=== PATIENT | male | born 1995 | race African-American/Black ===

== ENCOUNTER 2020-05-08 00:17 | Emergency (ER) | payer MEDICAID ==
[~2020-05-08] VITALS: Ht 182.9 cm; Wt 65.8 kg
[2020-05-08 00:30] VITALS: BP 116/79
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
[2020-05-08] MEDS ORDERED: CYCLOBENZAPRINE 10 MG TABLET ONE (00:42)
[2020-05-08] MEDS ORDERED: IBUPROFEN 400 MG TABLET ONE (00:43)
[2020-05-08] MEDS ORDERED: CYCL5TAB PO (00:45)
[2020-05-08] MEDS ORDERED: IBUP-1957 PO (00:45)
[2020-05-08] MEDS: CYCLOBENZAPRINE 10 MG TABLET PO ONE (00:48)
[2020-05-08] MEDS: IBUPROFEN 400 MG TABLET PO ONE (00:48)
== END 2020-05-08 01:20 | disposition home or self-care (01) ==
LOC: ER 00:17
DX: M79.18 Myalgia, other site (principal); M54.5 Low back pain; Z79.899 Other long term (current) drug therapy; V49.59XA Passenger injured in collision with other motor vehicles in traffic accident, initial encounter; Y93.89 Activity, other specified; Y92.488 Other paved roadways as the place of occurrence of the external cause; Y99.8 Other external cause status
CPT/HCPCS: 72100-TC